=== PATIENT | female | born 1985 | race Caucasian/White ===

== ENCOUNTER 2018-01-07 06:33 | Emergency (ER) | payer MEDICAID ==
[~2018-01-07] VITALS: Ht 160 cm; Wt 59.0 kg
[2018-01-07] MEDS ORDERED: ONDANSETRON ODT8 MG PO (09:43)
== END 2018-01-07 10:00 | disposition home or self-care (01) ==
LOC: ED 06:33
DX: F43.20 Adjustment disorder, unspecified (principal); F43.9 Reaction to severe stress, unspecified
CPT/HCPCS: 99283